=== PATIENT | male | born 1940 | race African-American/Black ===

== ENCOUNTER 2020-08-22 15:01 | Inpatient (IN) ==
[2020-08-22] MEDS ORDERED: SODIUM CHLORIDE 0.9% 1,000 ML IV STA (15:40)
[2020-08-22 17:23] LABS: Hematocrit 19.8 VOL% (42.0-52.0); Immature Granulocytes % 0.9 %; Immature Granulocytes Absolute 0.03 #; Lymphocytes # 1.4 10*3/uL (1.4-4.0); Lymphocytes % 41.2 % (21.2-54.2); Mean Corpuscular HGB Conc 30.8 GM/DL (32-36); Mean Corpuscular Volume 60.2 FL (87-102); Monocytes % 8.4 % (1.7-12.7); Neutrophils % 49.5 % (38.7-73.9); Platelet Count 55 T/CUMM (130-400); Red Blood Count 3.29 MC/CUMM (3.8-5.5); Red Cell Distribution Width 17.7 % (9.3-17.3); White Blood Count 3.4 T/CUMM (4-12)
[2020-08-22 17:29] LABS: Hemoglobin 6.1 GM/DL (14.0-18.0)
[2020-08-22 17:42] LABS: Albumin 1.9 G/DL (3.4-5.0); Bilirubin,Total 0.9 MG/DL (0.2-1.0); Calcium 7.7 MG/DL (8.5-10.1); Osmolality,Calculated 293.7 MOS/KG (273-304); Total Protein 5.8 G/DL (6.4-8.3)
[2020-08-22 18:07] LABS: Lymphocytes 22 % (20-55); Segmented Neutrophils 73 % (50-85); Total Cells Counted 100
[2020-08-22 18:10] LABS: % Iron Saturation 30.5 % (18-50); Ferritin 806.3 ng/ml (26-388)
[2020-08-22] MEDS ORDERED: ONDANSETRON 4 MG/2 ML VIAL IV PRN (18:10)
[2020-08-22] MEDS ORDERED: DEXTROSE 50% 25 GM/50 ML VIAL IV PRN ×2 (18:10→18:21)
[2020-08-22] MEDS ORDERED: GLUCAGON 1 MG VIAL IM PRN ×2 (18:10→18:21)
[2020-08-22 18:12] LABS: Anisocytosis 3+; Macrocytosis 1+; Microcytosis 3+; Poikilocytosis 2+; Polychromasia 1+; Schistocytes Few; Target Cells Few
[2020-08-22] MEDS ORDERED: SODIUM CHLORIDE 0.9% 1,000 ML IV PRN (18:12)
[2020-08-22 18:13] LABS: Burr Cells Slight; Platelet Estimate Decreased
[2020-08-22 18:14] LABS: Hypochromasia Slight
[2020-08-22 18:27] LABS: Folate 2.2 NG/ML (5.4-24.0)
[2020-08-22] MEDS: SODIUM CHLORIDE 0.9% 1,000 ML IV SCH (20:00)
[2020-08-22] MEDS: INSULIN LISPRO 100 UNIT/ML SUBCUT SCH (21:39)
[2020-08-22] MEDS: carvediloL 6.25 MG TABLET PO SCH (21:57)
[2020-08-22] MEDS: cilostazoL 100 MG TABLET PO SCH (21:58)
[2020-08-22] MEDS: ROSUVASTATIN 10 MG TABLET PO SCH (21:58)
[2020-08-22] MEDS: PANTOPRAZOLE 40 MG VIAL IV SCH (21:58)
[2020-08-23 06:09] LABS: Basophils % 0.3 % (0.0-0.8); Hematocrit 25.5 VOL% (42.0-52.0); Hemoglobin 8.1 GM/DL (14.0-18.0); Immature Granulocytes % 1.3 %; Immature Granulocytes Absolute 0.05 #; Lymphocytes # 1.8 10*3/uL (1.4-4.0); Lymphocytes % 46.9 % (21.2-54.2); Mean Corpuscular HGB Conc 31.8 GM/DL (32-36); Mean Corpuscular Volume 65.1 FL (87-102); Monocytes % 6.7 % (1.7-12.7); NRBC # 0.03 10*3/uL; Neutrophils % 44.8 % (38.7-73.9); Platelet Count 53 T/CUMM (130-400); Red Blood Count 3.92 MC/CUMM (3.8-5.5); Red Cell Distribution Width 24.2 % (9.3-17.3); White Blood Count 3.9 T/CUMM (4-12)
[2020-08-23 06:38] LABS: Band Neutrophils 4 % (0-10); Lymphocytes 31 % (20-55); Platelet Estimate Decreased; Segmented Neutrophils 60 % (50-85); Total Cells Counted 100
[2020-08-23 06:40] LABS: Atypical Lymphocytes Few; Hypochromasia 1+; Microcytosis 1+
[2020-08-23 06:44] LABS: Blood Urea Nitrogen 60 MG/DL (7-18); Calcium 7.6 MG/DL (8.5-10.1); Estimated Glom Filtration Rate 41 ML/MIN; Glucose 141 MG/DL (74-106); HDL Cholesterol 19 MG/DL (40-60); Osmolality,Calculated 293.7 MOS/KG (273-304); Risk Ratio 2.63; Triglycerides 72 MG/DL (2-150); VLDL CHOLESTEROL 14.4 MG/DL
[2020-08-23] MEDS: INSULIN LISPRO 100 UNIT/ML SUBCUT SCH ×4 (08:10→20:36)
[2020-08-23] MEDS ORDERED: PANTOPRAZOLE 40 MG TABLET PO SCH (09:00)
[2020-08-23] MEDS ORDERED: allopurinoL 100 MG TABLET PO SCH (09:00)
[2020-08-23] MEDS: PANTOPRAZOLE 40 MG VIAL IV SCH ×2 (10:10→20:32)
[2020-08-23] MEDS: carvediloL 6.25 MG TABLET PO SCH ×2 (10:13→17:50)
[2020-08-23] MEDS: TAMSULOSIN 0.4 MG CAPSULE PO SCH (10:14)
[2020-08-23] MEDS: cilostazoL 100 MG TABLET PO SCH ×2 (10:16→20:32)
[2020-08-23] MEDS: calcitrioL 0.25 MCG CAPSULE PO SCH (13:29)
[2020-08-23] MEDS: ACETAMINOPHEN 325 MG/10.15 ML UDCUP PO PRN (13:30)
[2020-08-23] MEDS: SODIUM CHLORIDE 0.9% 1,000 ML IV SCH (13:32)
[2020-08-23 18:53] LABS: Bacteria,Urine Occasional /HPF (Few); Bilirubin,Urine Negative (Negative); Blood, Urine Small mg/dL (Negative); Glucose,Urine (UA) Negative (Negative); Ketones,Urine Negative (Negative); Mucus,Urine Occasional /LPF (Occasional); Nitrite,Urine Negative (Negative); Protein,Urine Negative; RBC,Urine 11 /HPF (0-4); Urine Appearance CLEAR (Clear); Urine Color Yellow (Yellow); Urine Specific Gravity 1.015 (1.001-1.035); Urine Urobilinogen < 2.0 EU/DL (0.2-1.0); WBC,Urine 4 /HPF (0-6)
[2020-08-23] MEDS: ROSUVASTATIN 10 MG TABLET PO SCH (20:32)
[2020-08-24] MEDS: SODIUM CHLORIDE 0.9% 1,000 ML IV SCH ×3 (02:44→20:21)
[2020-08-24] MEDS: INSULIN LISPRO 100 UNIT/ML SUBCUT SCH ×4 (08:30→20:25)
[2020-08-24] MEDS: calcitrioL 0.25 MCG CAPSULE PO SCH (08:31)
[2020-08-24] MEDS: carvediloL 6.25 MG TABLET PO SCH ×2 (08:31→18:20)
[2020-08-24] MEDS: PANTOPRAZOLE 40 MG VIAL IV SCH ×2 (08:31→20:18)
[2020-08-24] MEDS: cilostazoL 100 MG TABLET PO SCH ×2 (08:31→20:16)
[2020-08-24] MEDS: TAMSULOSIN 0.4 MG CAPSULE PO SCH (08:31)
[2020-08-24] MEDS: methylPREDNISolone SOD SUC 125 MG/2 ML VIAL IV SCH ×2 (08:35→20:16)
[2020-08-24] MEDS: MYLANTA/LIDO VISC/NYST 180 ML BOTTLE SWISH/SWAL PRN (20:27)
[2020-08-25 06:04] LABS: Basophils % 0.3 % (0.0-0.8); Hematocrit 23.5 VOL% (42.0-52.0); Hemoglobin 7.4 GM/DL (14.0-18.0); Immature Granulocytes % 1.2 %; Immature Granulocytes Absolute 0.04 #; Lymphocytes # 1.4 10*3/uL (1.4-4.0); Lymphocytes % 40.4 % (21.2-54.2); Mean Corpuscular HGB Conc 31.5 GM/DL (32-36); Mean Corpuscular Volume 65.3 FL (87-102); Monocytes % 4.4 % (1.7-12.7); Neutrophils % 53.7 % (38.7-73.9); Platelet Count 55 T/CUMM (130-400); White Blood Count 3.4 T/CUMM (4-12)
[2020-08-25 06:33] LABS: Band Neutrophils 26 % (0-10); Lymphocytes 38 % (20-55); Nucleated Red Blood Cells 4 (0-5); Platelet Estimate Decreased; Segmented Neutrophils 33 % (50-85); Smudge Cells 1+; Total Cells Counted 100
[2020-08-25 06:34] LABS: Anisocytosis 2+; Burr Cells 1+; Poikilocytosis 1+; Target Cells Few
[2020-08-25 06:36] LABS: Albumin 1.8 G/DL (3.4-5.0); Bilirubin,Total 1.2 MG/DL (0.2-1.0); Calcium 7.7 MG/DL (8.5-10.1); Osmolality,Calculated 298.5 MOS/KG (273-304); Total Protein 6.1 G/DL (6.4-8.3)
[2020-08-25] MEDS ORDERED: SODIUM CHLORIDE 0.9% 1,000 ML IV PRN (08:40)
[2020-08-25] MEDS: PANTOPRAZOLE 40 MG VIAL IV SCH ×2 (08:58→22:07)
[2020-08-25] MEDS: methylPREDNISolone SOD SUC 125 MG/2 ML VIAL IV SCH ×2 (08:59→22:07)
[2020-08-25] MEDS: INSULIN LISPRO 100 UNIT/ML SUBCUT SCH ×4 (08:59→22:07)
[2020-08-25] MEDS: calcitrioL 0.25 MCG CAPSULE PO SCH (09:00)
[2020-08-25] MEDS: TAMSULOSIN 0.4 MG CAPSULE PO SCH (09:00)
[2020-08-25] MEDS: carvediloL 6.25 MG TABLET PO SCH ×2 (09:00→17:39)
[2020-08-25] MEDS: cilostazoL 100 MG TABLET PO SCH ×2 (09:00→22:07)
[2020-08-25] MEDS: FOLIC ACID 1 MG TABLET PO SCH (12:07)
[2020-08-25] MEDS: SODIUM CHLORIDE 0.9% 1,000 ML IV SCH ×2 (13:40→17:39)
[2020-08-25] MEDS ORDERED: TUBERCULIN SKIN TEST 0.1 ML SYRINGE INTRADERM ONE (18:08)
[2020-08-25] MEDS: KETOCONAZOLE 2% CREAM 30 GM TUBE TOP SCH (22:08)
[2020-08-25] MEDS: MYLANTA/LIDO VISC/NYST 180 ML BOTTLE SWISH/SWAL PRN (22:08)
[2020-08-25] MEDS: ZINC OXIDE 16% PASTE 57 GM TUBE TOP SCH (22:08)
[2020-08-26 04:17] LABS: Hematocrit 30.9 VOL% (42.0-52.0); Immature Granulocytes % 1.2 %; Immature Granulocytes Absolute 0.03 #; Lymphocytes # 0.9 10*3/uL (1.4-4.0); Lymphocytes % 36.1 % (21.2-54.2); Mean Corpuscular HGB Conc 32.4 GM/DL (32-36); Mean Corpuscular Volume 66.2 FL (87-102); Monocytes % 6.7 % (1.7-12.7); NRBC # 0.02 10*3/uL; Platelet Count 49 T/CUMM (130-400); Red Blood Count 4.67 MC/CUMM (3.8-5.5); Red Cell Distribution Width 25.3 % (9.3-17.3); White Blood Count 2.5 T/CUMM (4-12)
[2020-08-26 04:31] LABS: Albumin 1.8 G/DL (3.4-5.0); Calcium 7.4 MG/DL (8.5-10.1); Osmolality,Calculated 303.5 MOS/KG (273-304); Total Protein 6.6 G/DL (6.4-8.3)
[2020-08-26 04:50] LABS: Band Neutrophils 1 % (0-10); Lymphocytes 30 % (20-55); Nucleated Red Blood Cells 1 (0-5); Platelet Estimate Decreased; Segmented Neutrophils 61 % (50-85); Total Cells Counted 100
[2020-08-26 04:51] LABS: Burr Cells Slight; Hypochromasia 1+; Microcytosis Slight; Ovalocytes Slight
[2020-08-26 04:52] LABS: Atypical Lymphocytes Few
[2020-08-26] MEDS: SODIUM CHLORIDE 0.9% 1,000 ML IV SCH ×2 (05:57→19:15)
[2020-08-26] MEDS: INSULIN LISPRO 100 UNIT/ML SUBCUT SCH ×4 (08:58→20:52)
[2020-08-26] MEDS: methylPREDNISolone SOD SUC 125 MG/2 ML VIAL IV SCH ×2 (08:59→20:53)
[2020-08-26] MEDS: FOLIC ACID 1 MG TABLET PO SCH (08:59)
[2020-08-26] MEDS: calcitrioL 0.25 MCG CAPSULE PO SCH (08:59)
[2020-08-26] MEDS: cilostazoL 100 MG TABLET PO SCH ×2 (08:59→20:52)
[2020-08-26] MEDS: TAMSULOSIN 0.4 MG CAPSULE PO SCH (08:59)
[2020-08-26] MEDS: MYLANTA/LIDO VISC/NYST 180 ML BOTTLE SWISH/SWAL PRN ×2 (08:59→17:44)
[2020-08-26] MEDS: carvediloL 6.25 MG TABLET PO SCH ×2 (08:59→17:44)
[2020-08-26] MEDS: PANTOPRAZOLE 40 MG VIAL IV SCH ×2 (08:59→20:53)
[2020-08-26] MEDS: KETOCONAZOLE 2% CREAM 30 GM TUBE TOP SCH ×2 (09:00→20:53)
[2020-08-26] MEDS: ZINC OXIDE 16% PASTE 57 GM TUBE TOP SCH ×2 (09:00→20:53)
[2020-08-27 04:08] LABS: Hematocrit 30.1 VOL% (42.0-52.0); Hemoglobin 9.8 GM/DL (14.0-18.0); Immature Granulocytes Absolute 0.03 #; Lymphocytes # 0.5 10*3/uL (1.4-4.0); Mean Corpuscular HGB Conc 32.6 GM/DL (32-36); Monocytes % 5.4 % (1.7-12.7); NRBC # 0.03 10*3/uL; Neutrophils % 60.6 % (38.7-73.9); Platelet Count 42 T/CUMM (130-400); Red Blood Count 4.56 MC/CUMM (3.8-5.5); Red Cell Distribution Width 25.2 % (9.3-17.3); White Blood Count 1.5 T/CUMM (4-12)
[2020-08-27 04:32] LABS: Albumin 1.7 G/DL (3.4-5.0); Bilirubin,Total 1.3 MG/DL (0.2-1.0); Calcium 7.7 MG/DL (8.5-10.1); Osmolality,Calculated 299.4 MOS/KG (273-304); Total Protein 6.5 G/DL (6.4-8.3)
[2020-08-27 06:22] LABS: Band Neutrophils 20 % (0-10); Lymphocytes 24 % (20-55); Segmented Neutrophils 54 % (50-85); Total Cells Counted 100
[2020-08-27 06:23] LABS: Anisocytosis 2+; Burr Cells 2+; Platelet Estimate Decreased; Smudge Cells Few; Target Cells Few
[2020-08-27] MEDS: methylPREDNISolone SOD SUC 125 MG/2 ML VIAL IV SCH ×2 (09:00→20:23)
[2020-08-27] MEDS: PANTOPRAZOLE 40 MG VIAL IV SCH ×2 (09:00→20:24)
[2020-08-27] MEDS: INSULIN LISPRO 100 UNIT/ML SUBCUT SCH ×4 (09:00→20:24)
[2020-08-27] MEDS: calcitrioL 0.25 MCG CAPSULE PO SCH (09:01)
[2020-08-27] MEDS: KETOCONAZOLE 2% CREAM 30 GM TUBE TOP SCH ×2 (09:01→20:24)
[2020-08-27] MEDS: TAMSULOSIN 0.4 MG CAPSULE PO SCH (09:01)
[2020-08-27] MEDS: carvediloL 6.25 MG TABLET PO SCH ×2 (09:01→16:18)
[2020-08-27] MEDS: cilostazoL 100 MG TABLET PO SCH ×2 (09:01→20:25)
[2020-08-27] MEDS: ZINC OXIDE 16% PASTE 57 GM TUBE TOP SCH ×2 (09:01→20:24)
[2020-08-27] MEDS: FOLIC ACID 1 MG TABLET PO SCH (09:01)
[2020-08-27] MEDS: SODIUM CHLORIDE 0.9% 1,000 ML IV SCH ×2 (09:06→22:10)
[2020-08-27] MEDS: MYLANTA/LIDO VISC/NYST 180 ML BOTTLE SWISH/SWAL PRN ×2 (16:31→20:25)
[2020-08-27] MEDS: ACETAMINOPHEN 325 MG/10.15 ML UDCUP PO PRN (20:26)
[2020-08-28 06:34] LABS: Basophils % 0.5 % (0.0-0.8); Hematocrit 32.5 VOL% (42.0-52.0); Hemoglobin 10.5 GM/DL (14.0-18.0); Immature Granulocytes % 6.6 %; Immature Granulocytes Absolute 0.14 #; Lymphocytes # 0.4 10*3/uL (1.4-4.0); Lymphocytes % 20.7 % (21.2-54.2); Mean Corpuscular HGB Conc 32.3 GM/DL (32-36); Mean Corpuscular Volume 66.5 FL (87-102); Monocytes % 4.2 % (1.7-12.7); NRBC # 0.06 10*3/uL; Platelet Count 41 T/CUMM (130-400); Red Blood Count 4.89 MC/CUMM (3.8-5.5); Red Cell Distribution Width 25.9 % (9.3-17.3); White Blood Count 2.1 T/CUMM (4-12)
[2020-08-28 06:58] LABS: Albumin 1.7 G/DL (3.4-5.0); Bilirubin,Total 1.7 MG/DL (0.2-1.0); Calcium 7.7 MG/DL (8.5-10.1); Osmolality,Calculated 298.5 MOS/KG (273-304)
[2020-08-28 07:54] LABS: Anisocytosis 2+; Band Neutrophils 21 % (0-10); Burr Cells Few; Hypochromasia Slight; Lymphocytes 19 % (20-55); Metamyelocytes 1 %; Nucleated Red Blood Cells 3 (0-5); Platelet Estimate Decreased; Segmented Neutrophils 56 % (50-85); Smudge Cells Few; Target Cells Few; Total Cells Counted 100
[2020-08-28] MEDS: MYLANTA/LIDO VISC/NYST 180 ML BOTTLE SWISH/SWAL PRN ×3 (09:11→20:54)
[2020-08-28] MEDS: calcitrioL 0.25 MCG CAPSULE PO SCH (09:12)
[2020-08-28] MEDS: cilostazoL 100 MG TABLET PO SCH ×2 (09:12→21:07)
[2020-08-28] MEDS: FOLIC ACID 1 MG TABLET PO SCH (09:12)
[2020-08-28] MEDS: TAMSULOSIN 0.4 MG CAPSULE PO SCH (09:13)
[2020-08-28] MEDS: carvediloL 6.25 MG TABLET PO SCH ×2 (09:13→17:38)
[2020-08-28] MEDS: INSULIN LISPRO 100 UNIT/ML SUBCUT SCH ×4 (09:14→20:50)
[2020-08-28] MEDS: methylPREDNISolone SOD SUC 125 MG/2 ML VIAL IV SCH ×2 (09:16→20:50)
[2020-08-28] MEDS: PANTOPRAZOLE 40 MG VIAL IV SCH ×2 (09:19→20:50)
[2020-08-28] MEDS: ZINC OXIDE 16% PASTE 57 GM TUBE TOP SCH ×2 (09:24→20:50)
[2020-08-28] MEDS: KETOCONAZOLE 2% CREAM 30 GM TUBE TOP SCH ×2 (09:24→20:50)
[2020-08-28] MEDS: ACETAMINOPHEN 325 MG/10.15 ML UDCUP PO PRN (15:50)
[2020-08-28] MEDS: SODIUM CHLORIDE 0.9% 1,000 ML IV SCH (15:55)
[2020-08-29] MEDS: SODIUM CHLORIDE 0.9% 1,000 ML IV SCH ×4 (00:28→20:52)
[2020-08-29 04:29] LABS: Hematocrit 29.1 VOL% (42.0-52.0); Hemoglobin 9.2 GM/DL (14.0-18.0); Immature Granulocytes % 3.3 %; Immature Granulocytes Absolute 0.06 #; Lymphocytes # 0.3 10*3/uL (1.4-4.0); Lymphocytes % 15.8 % (21.2-54.2); Mean Corpuscular HGB Conc 31.6 GM/DL (32-36); Mean Corpuscular Volume 67.4 FL (87-102); Monocytes % 4.3 % (1.7-12.7); NRBC # 0.02 10*3/uL; Neutrophils % 76.6 % (38.7-73.9); Red Blood Count 4.32 MC/CUMM (3.8-5.5); Red Cell Distribution Width 25.9 % (9.3-17.3); White Blood Count 1.8 T/CUMM (4-12)
[2020-08-29 04:31] LABS: Platelet Count 39 T/CUMM (130-400)
[2020-08-29 04:57] LABS: Albumin 1.6 G/DL (3.4-5.0); Bilirubin,Total 0.9 MG/DL (0.2-1.0); Calcium 7.5 MG/DL (8.5-10.1); Osmolality,Calculated 302.3 MOS/KG (273-304); Total Protein 6.2 G/DL (6.4-8.3)
[2020-08-29 04:59] LABS: Band Neutrophils 2 % (0-10); Burr Cells Slight; Hypochromasia 1+; Lymphocytes 15 % (20-55); Nucleated Red Blood Cells 2 (0-5); Platelet Estimate Decreased; Segmented Neutrophils 81 % (50-85); Target Cells Few; Total Cells Counted 100
[2020-08-29 08:20] LABS: INR 1.2; PT Patient Result 12.4 SECS (9.8-11.9)
[2020-08-29] MEDS: PANTOPRAZOLE 40 MG VIAL IV SCH ×2 (08:40→20:49)
[2020-08-29] MEDS: calcitrioL 0.25 MCG CAPSULE PO SCH (08:40)
[2020-08-29] MEDS: INSULIN LISPRO 100 UNIT/ML SUBCUT SCH ×4 (08:40→20:46)
[2020-08-29] MEDS: methylPREDNISolone SOD SUC 125 MG/2 ML VIAL IV SCH ×2 (08:40→20:46)
[2020-08-29] MEDS: carvediloL 6.25 MG TABLET PO SCH ×2 (08:41→16:52)
[2020-08-29] MEDS: KETOCONAZOLE 2% CREAM 30 GM TUBE TOP SCH ×2 (08:41→20:52)
[2020-08-29] MEDS: ZINC OXIDE 16% PASTE 57 GM TUBE TOP SCH ×2 (08:41→20:52)
[2020-08-29] MEDS: FOLIC ACID 1 MG TABLET PO SCH (08:41)
[2020-08-29] MEDS: TAMSULOSIN 0.4 MG CAPSULE PO SCH (08:41)
[2020-08-29] MEDS: cilostazoL 100 MG TABLET PO SCH ×2 (08:41→20:46)
[2020-08-29] MEDS ORDERED: HEPARIN 5,000 UNIT/1 ML VIAL ONE (10:38)
[2020-08-30 04:54] LABS: Hematocrit 30.4 VOL% (42.0-52.0); Hemoglobin 9.5 GM/DL (14.0-18.0); Immature Granulocytes % 6.9 %; Immature Granulocytes Absolute 0.13 #; Lymphocytes # 0.3 10*3/uL (1.4-4.0); Lymphocytes % 14.8 % (21.2-54.2); Mean Corpuscular HGB Conc 31.3 GM/DL (32-36); Mean Corpuscular Volume 67.1 FL (87-102); Monocytes % 3.7 % (1.7-12.7); NRBC # 0.02 10*3/uL; Neutrophils % 74.6 % (38.7-73.9); Red Blood Count 4.53 MC/CUMM (3.8-5.5); Red Cell Distribution Width 25.9 % (9.3-17.3); White Blood Count 1.9 T/CUMM (4-12)
[2020-08-30 04:59] LABS: Platelet Count 34 T/CUMM (130-400)
[2020-08-30 05:17] LABS: Band Neutrophils 1 % (0-10); Lymphocytes 11 % (20-55); Segmented Neutrophils 86 % (50-85); Total Cells Counted 100
[2020-08-30 05:18] LABS: Hypochromasia 1+; Microcytosis Slight; Ovalocytes Slight; Platelet Estimate Decreased; Target Cells Few
[2020-08-30 05:19] LABS: Burr Cells Slight
[2020-08-30 05:27] LABS: Albumin 1.7 G/DL (3.4-5.0); Bilirubin,Total 1.2 MG/DL (0.2-1.0); Calcium 7.5 MG/DL (8.5-10.1); Osmolality,Calculated 299.5 MOS/KG (273-304); Total Protein 6.3 G/DL (6.4-8.3)
[2020-08-30] MEDS: KETOCONAZOLE 2% CREAM 30 GM TUBE TOP SCH ×2 (09:09→21:58)
[2020-08-30] MEDS: PANTOPRAZOLE 40 MG VIAL IV SCH ×2 (09:09→21:57)
[2020-08-30] MEDS: SODIUM CHLORIDE 0.9% 1,000 ML IV SCH ×3 (09:09→22:00)
[2020-08-30] MEDS: carvediloL 6.25 MG TABLET PO SCH ×2 (09:10→17:51)
[2020-08-30] MEDS: TAMSULOSIN 0.4 MG CAPSULE PO SCH (09:10)
[2020-08-30] MEDS: calcitrioL 0.25 MCG CAPSULE PO SCH (09:10)
[2020-08-30] MEDS: FOLIC ACID 1 MG TABLET PO SCH (09:10)
[2020-08-30] MEDS: INSULIN LISPRO 100 UNIT/ML SUBCUT SCH ×4 (09:10→21:54)
[2020-08-30] MEDS: cilostazoL 100 MG TABLET PO SCH ×2 (09:10→21:58)
[2020-08-30] MEDS: methylPREDNISolone SOD SUC 125 MG/2 ML VIAL IV SCH ×2 (09:10→21:55)
[2020-08-30] MEDS: ZINC OXIDE 16% PASTE 57 GM TUBE TOP SCH ×2 (09:11→21:58)
[2020-08-30] MEDS: amLODIPine 5 MG TABLET PO SCH (17:51)
[2020-08-31 06:51] LABS: Total Protein (Chem) 6.8 G/DL (6.4-8.3)
[2020-08-31] MEDS: methylPREDNISolone SOD SUC 125 MG/2 ML VIAL IV SCH ×2 (09:09→20:40)
[2020-08-31] MEDS: INSULIN LISPRO 100 UNIT/ML SUBCUT SCH ×4 (09:11→20:38)
[2020-08-31] MEDS: carvediloL 6.25 MG TABLET PO SCH ×2 (09:12→17:17)
[2020-08-31] MEDS: TAMSULOSIN 0.4 MG CAPSULE PO SCH (09:13)
[2020-08-31] MEDS: amLODIPine 5 MG TABLET PO SCH (09:13)
[2020-08-31] MEDS: FOLIC ACID 1 MG TABLET PO SCH (09:13)
[2020-08-31] MEDS: cilostazoL 100 MG TABLET PO SCH ×2 (09:13→20:40)
[2020-08-31] MEDS: KETOCONAZOLE 2% CREAM 30 GM TUBE TOP SCH ×2 (09:14→20:41)
[2020-08-31] MEDS: ZINC OXIDE 16% PASTE 57 GM TUBE TOP SCH ×2 (09:14→20:40)
[2020-08-31] MEDS: calcitrioL 0.25 MCG CAPSULE PO SCH (09:16)
[2020-08-31] MEDS: PANTOPRAZOLE 40 MG VIAL IV SCH ×2 (09:16→20:39)
[2020-08-31 09:51] LABS: Albumin (SPE) 2.6 G/DL (3.2-5.3); Albumin (SPE) Rel % 37.6 %; Alpha 1 (SPE) 0.2 G/DL (0.1-0.4); Alpha 1 (SPE) Rel % 2.8 %; Alpha 2 (SPE) 0.7 G/DL (0.4-1.0); Alpha 2 (SPE) Rel % 10.5 %; Beta (SPE) 0.5 G/DL (0.5-1.1); Beta (SPE) Rel % 7.2 %; Gamma (SPE) 2.8 G/DL (0.7-1.7); Gamma (SPE) Rel % 41.9 %
[2020-08-31] MEDS: SODIUM CHLORIDE 0.9% 1,000 ML IV SCH (17:19)
[2020-09-01 04:02] LABS: Basophils % 0.3 % (0.0-0.8); Hematocrit 29.7 VOL% (42.0-52.0); Hemoglobin 9.4 GM/DL (14.0-18.0); Immature Granulocytes % 5.8 %; Immature Granulocytes Absolute 0.17 #; Lymphocytes # 0.7 10*3/uL (1.4-4.0); Lymphocytes % 24.1 % (21.2-54.2); Mean Corpuscular HGB Conc 31.6 GM/DL (32-36); Monocytes % 9.9 % (1.7-12.7); NRBC # 0.03 10*3/uL; Neutrophils % 59.9 % (38.7-73.9); Platelet Count 43 T/CUMM (130-400); Red Blood Count 4.37 MC/CUMM (3.8-5.5); Red Cell Distribution Width 25.5 % (9.3-17.3); White Blood Count 2.9 T/CUMM (4-12)
[2020-09-01 04:25] LABS: Calcium 7.5 MG/DL (8.5-10.1); Osmolality,Calculated 294.3 MOS/KG (273-304)
[2020-09-01 04:28] LABS: Hypochromasia 1+; Lymphocytes 26 % (20-55); Ovalocytes Slight; Platelet Estimate Decreased; Segmented Neutrophils 68 % (50-85); Total Cells Counted 100
[2020-09-01 04:29] LABS: Microcytosis Slight; Target Cells Few
[2020-09-01] MEDS: ZINC OXIDE 16% PASTE 57 GM TUBE TOP SCH ×2 (08:50→21:01)
[2020-09-01] MEDS: KETOCONAZOLE 2% CREAM 30 GM TUBE TOP SCH ×2 (08:51→21:02)
[2020-09-01] MEDS: INSULIN LISPRO 100 UNIT/ML SUBCUT SCH ×4 (08:51→21:00)
[2020-09-01] MEDS: SODIUM CHLORIDE 0.9% 1,000 ML IV SCH ×2 (08:52→21:00)
[2020-09-01] MEDS: methylPREDNISolone SOD SUC 125 MG/2 ML VIAL IV SCH ×2 (08:53→20:59)
[2020-09-01] MEDS: PANTOPRAZOLE 40 MG VIAL IV SCH ×2 (08:55→20:59)
[2020-09-01] MEDS: amLODIPine 5 MG TABLET PO SCH (08:58)
[2020-09-01] MEDS: TAMSULOSIN 0.4 MG CAPSULE PO SCH (08:58)
[2020-09-01] MEDS: calcitrioL 0.25 MCG CAPSULE PO SCH (08:58)
[2020-09-01] MEDS: FOLIC ACID 1 MG TABLET PO SCH (08:58)
[2020-09-01] MEDS: CLOTRIMAZOLE 10 MG TROCHE PO SCH ×4 (09:03→20:58)
[2020-09-01] MEDS: carvediloL 6.25 MG TABLET PO SCH ×2 (09:03→16:16)
[2020-09-01] MEDS ORDERED: INFLUENZA VIRUS VACCINE 0.5 ML SYRINGE IM ONE (11:11)
[2020-09-01 18:53] LABS: HIV Antigen/Antibody Result Nonreactive (Nonreactive); Hepatitis B Core IgM Quant 0.09 Index; Hepatitis B Surface Ab Result Negative; Hepatitis B Surface Ag Quant < 0.10 Index; Hepatitis B Surface Ag Result Negative (Negative); Hepatitis C Virus Ab Quant 0.14 Index; Hepatitis C Virus Ab Result Negative (Negative)
[2020-09-01] MEDS: NYSTATIN POWDER 15 GM BOTTLE TOP SCH (21:04)
[2020-09-02 06:16] LABS: Basophils % 0.3 % (0.0-0.8); Hematocrit 32.1 VOL% (42.0-52.0); Hemoglobin 10.2 GM/DL (14.0-18.0); Immature Granulocytes % 5.6 %; Immature Granulocytes Absolute 0.19 #; Lymphocytes # 0.8 10*3/uL (1.4-4.0); Lymphocytes % 22.3 % (21.2-54.2); Mean Corpuscular HGB Conc 31.8 GM/DL (32-36); Mean Corpuscular Volume 67.4 FL (87-102); Monocytes % 8.2 % (1.7-12.7); Neutrophils % 63.6 % (38.7-73.9); Platelet Count 47 T/CUMM (130-400); Red Blood Count 4.76 MC/CUMM (3.8-5.5); Red Cell Distribution Width 25.9 % (9.3-17.3); White Blood Count 3.4 T/CUMM (4-12)
[2020-09-02 06:37] LABS: Albumin 1.6 G/DL (3.4-5.0); Bilirubin,Total 0.9 MG/DL (0.2-1.0); Calcium 7.9 MG/DL (8.5-10.1); Osmolality,Calculated 288.5 MOS/KG (273-304); Total Protein 6.1 G/DL (6.4-8.3)
[2020-09-02 06:48] LABS: Lymphocytes 23 % (20-55); Platelet Estimate Decreased; Segmented Neutrophils 64 % (50-85); Total Cells Counted 100
[2020-09-02 06:49] LABS: Microcytosis Slight
[2020-09-02] MEDS: PANTOPRAZOLE 40 MG VIAL IV SCH ×2 (08:53→21:27)
[2020-09-02] MEDS: INSULIN LISPRO 100 UNIT/ML SUBCUT SCH ×4 (08:53→21:27)
[2020-09-02] MEDS: calcitrioL 0.25 MCG CAPSULE PO SCH (08:54)
[2020-09-02] MEDS: carvediloL 6.25 MG TABLET PO SCH ×2 (08:54→17:33)
[2020-09-02] MEDS: methylPREDNISolone SOD SUC 125 MG/2 ML VIAL IV SCH (08:54)
[2020-09-02] MEDS: TAMSULOSIN 0.4 MG CAPSULE PO SCH (08:55)
[2020-09-02] MEDS: CLOTRIMAZOLE 10 MG TROCHE PO SCH ×4 (08:55→21:27)
[2020-09-02] MEDS: FOLIC ACID 1 MG TABLET PO SCH (08:55)
[2020-09-02] MEDS: amLODIPine 5 MG TABLET PO SCH (08:55)
[2020-09-02] MEDS: ZINC OXIDE 16% PASTE 57 GM TUBE TOP SCH ×2 (08:56→21:28)
[2020-09-02] MEDS: NYSTATIN POWDER 15 GM BOTTLE TOP SCH ×2 (08:56→21:27)
[2020-09-02] MEDS: KETOCONAZOLE 2% CREAM 30 GM TUBE TOP SCH ×2 (08:57→21:28)
[2020-09-02] MEDS: SODIUM CHLORIDE 0.9% 1,000 ML IV SCH (09:04)
[2020-09-02] MEDS ORDERED: SODIUM CHLORIDE 0.9% 1,000 ML IV PRN (12:28)
[2020-09-02] MEDS: methylPREDNISolone SOD SUC 40 MG/1 ML VIAL IV SCH (13:23)
[2020-09-03] MEDS: SODIUM CHLORIDE 0.9% 1,000 ML IV SCH ×2 (00:30→12:39)
[2020-09-03] MEDS: methylPREDNISolone SOD SUC 40 MG/1 ML VIAL IV SCH ×2 (02:21→12:34)
[2020-09-03] MEDS: ACETAMINOPHEN 325 MG/10.15 ML UDCUP PO PRN ×2 (04:47→20:57)
[2020-09-03 06:01] LABS: Basophils % 0.2 % (0.0-0.8); Hematocrit 29.5 VOL% (42.0-52.0); Hemoglobin 9.1 GM/DL (14.0-18.0); Immature Granulocytes % 5.4 %; Immature Granulocytes Absolute 0.22 #; Lymphocytes # 0.8 10*3/uL (1.4-4.0); Lymphocytes % 20.3 % (21.2-54.2); Mean Corpuscular HGB Conc 30.8 GM/DL (32-36); Monocytes % 6.7 % (1.7-12.7); Neutrophils % 67.4 % (38.7-73.9); Red Blood Count 4.34 MC/CUMM (3.8-5.5); Red Cell Distribution Width 25.8 % (9.3-17.3)
[2020-09-03 06:12] LABS: Platelet Count 59 T/CUMM (130-400)
[2020-09-03 06:16] LABS: Calcium 7.7 MG/DL (8.5-10.1); Osmolality,Calculated 282.8 MOS/KG (273-304)
[2020-09-03 06:34] LABS: Alanine Aminotransferase < 6 U/L (16-61); Albumin 0.6 G/DL (3.4-5.0); Alkaline Phosphatase 86 U/L (45-117); Aspartate Amino Transferase < 3 U/L (0-37); Blood Urea Nitrogen < 1 MG/DL (7-18); Calcium 7.7 MG/DL (8.5-10.1); Estimated Glom Filtration Rate 89 ML/MIN; Glucose 149 MG/DL (74-106); Osmolality,Calculated 266.6 MOS/KG (273-304); Total Protein < 1.0 G/DL (6.4-8.3)
[2020-09-03 06:35] LABS: Band Neutrophils 4 % (0-10); Hypochromasia 2+; Lymphocytes 17 % (20-55); Metamyelocytes 1 %; Microcytosis 1+; Segmented Neutrophils 74 % (50-85); Target Cells Slight; Total Cells Counted 100
[2020-09-03 06:36] LABS: Platelet Estimate Decreased; Polychromasia Slight
[2020-09-03] MEDS: INSULIN LISPRO 100 UNIT/ML SUBCUT SCH ×4 (09:54→20:57)
[2020-09-03] MEDS: calcitrioL 0.25 MCG CAPSULE PO SCH (09:55)
[2020-09-03] MEDS: FOLIC ACID 1 MG TABLET PO SCH (09:55)
[2020-09-03] MEDS: PANTOPRAZOLE 40 MG VIAL IV SCH ×2 (09:55→20:57)
[2020-09-03] MEDS: CLOTRIMAZOLE 10 MG TROCHE PO SCH ×4 (09:55→20:57)
[2020-09-03] MEDS: amLODIPine 5 MG TABLET PO SCH (09:56)
[2020-09-03] MEDS: ZINC OXIDE 16% PASTE 57 GM TUBE TOP SCH ×2 (09:56→21:05)
[2020-09-03] MEDS: TAMSULOSIN 0.4 MG CAPSULE PO SCH (09:56)
[2020-09-03] MEDS: carvediloL 6.25 MG TABLET PO SCH ×2 (09:56→16:40)
[2020-09-03] MEDS: NYSTATIN POWDER 15 GM BOTTLE TOP SCH ×2 (09:57→21:05)
[2020-09-03] MEDS: KETOCONAZOLE 2% CREAM 30 GM TUBE TOP SCH ×2 (09:57→21:05)
[2020-09-04] MEDS: methylPREDNISolone SOD SUC 40 MG/1 ML VIAL IV SCH ×2 (01:43→13:26)
[2020-09-04] MEDS: SODIUM CHLORIDE 0.9% 1,000 ML IV SCH ×2 (01:43→16:40)
[2020-09-04 07:00] LABS: Basophils % 0.2 % (0.0-0.8); Hematocrit 27.3 VOL% (42.0-52.0); Hemoglobin 8.6 GM/DL (14.0-18.0); Immature Granulocytes % 6.9 %; Immature Granulocytes Absolute 0.34 #; Lymphocytes # 0.5 10*3/uL (1.4-4.0); Lymphocytes % 10.2 % (21.2-54.2); Mean Corpuscular HGB Conc 31.5 GM/DL (32-36); Mean Corpuscular Volume 68.6 FL (87-102); Monocytes % 4.5 % (1.7-12.7); NRBC # 0.02 10*3/uL; Neutrophils % 78.2 % (38.7-73.9); Red Blood Count 3.98 MC/CUMM (3.8-5.5); Red Cell Distribution Width 25.7 % (9.3-17.3); White Blood Count 4.9 T/CUMM (4-12)
[2020-09-04 07:06] LABS: Platelet Count 71 T/CUMM (130-400)
[2020-09-04 07:23] LABS: Hypochromasia 1+; Lymphocytes 9 % (20-55); Microcytosis 1+; Platelet Estimate Decreased; Segmented Neutrophils 89 % (50-85); Target Cells Few; Total Cells Counted 100
[2020-09-04 07:35] LABS: Calcium 7.2 MG/DL (8.5-10.1); Osmolality,Calculated 290.4 MOS/KG (273-304)
[2020-09-04 07:37] LABS: Albumin 1.7 G/DL (3.4-5.0); Bilirubin,Total 0.9 MG/DL (0.2-1.0); Calcium 7.5 MG/DL (8.5-10.1); Osmolality,Calculated 287.5 MOS/KG (273-304); Total Protein 5.8 G/DL (6.4-8.3)
[2020-09-04] MEDS: INSULIN LISPRO 100 UNIT/ML SUBCUT SCH ×4 (08:56→21:01)
[2020-09-04] MEDS: PANTOPRAZOLE 40 MG VIAL IV SCH ×2 (08:57→21:01)
[2020-09-04] MEDS: CLOTRIMAZOLE 10 MG TROCHE PO SCH ×4 (08:58→21:01)
[2020-09-04] MEDS: amLODIPine 5 MG TABLET PO SCH (08:58)
[2020-09-04] MEDS: calcitrioL 0.25 MCG CAPSULE PO SCH (08:58)
[2020-09-04] MEDS: TAMSULOSIN 0.4 MG CAPSULE PO SCH (08:58)
[2020-09-04] MEDS: carvediloL 6.25 MG TABLET PO SCH ×2 (08:58→16:40)
[2020-09-04] MEDS: FOLIC ACID 1 MG TABLET PO SCH (08:58)
[2020-09-04] MEDS: KETOCONAZOLE 2% CREAM 30 GM TUBE TOP SCH ×2 (08:59→21:01)
[2020-09-04] MEDS: NYSTATIN POWDER 15 GM BOTTLE TOP SCH ×2 (08:59→21:01)
[2020-09-04] MEDS: ZINC OXIDE 16% PASTE 57 GM TUBE TOP SCH ×2 (08:59→21:01)
[2020-09-05] MEDS: methylPREDNISolone SOD SUC 40 MG/1 ML VIAL IV SCH (01:48)
[2020-09-05] MEDS: SODIUM CHLORIDE 0.9% 1,000 ML IV SCH ×2 (05:31→17:04)
[2020-09-05 05:59] LABS: Basophils % 0.2 % (0.0-0.8); Hemoglobin 8.6 GM/DL (14.0-18.0); Immature Granulocytes % 6.8 %; Immature Granulocytes Absolute 0.38 #; Lymphocytes # 0.5 10*3/uL (1.4-4.0); Mean Corpuscular HGB Conc 31.9 GM/DL (32-36); Mean Corpuscular Volume 67.8 FL (87-102); Monocytes % 5.4 % (1.7-12.7); NRBC # 0.02 10*3/uL; Neutrophils % 78.6 % (38.7-73.9); Red Blood Count 3.98 MC/CUMM (3.8-5.5); Red Cell Distribution Width 25.6 % (9.3-17.3); White Blood Count 5.6 T/CUMM (4-12)
[2020-09-05 06:04] LABS: Platelet Count 82 T/CUMM (130-400)
[2020-09-05 06:21] LABS: Hypochromasia 1+; Lymphocytes 12 % (20-55); Platelet Estimate Decreased; Segmented Neutrophils 86 % (50-85); Target Cells Few; Total Cells Counted 100
[2020-09-05 06:22] LABS: Microcytosis 1+
[2020-09-05 06:26] LABS: Albumin 1.6 G/DL (3.4-5.0); Calcium 7.1 MG/DL (8.5-10.1); Osmolality,Calculated 289.3 MOS/KG (273-304); Total Protein 5.6 G/DL (6.4-8.3)
[2020-09-05 06:34] LABS: Calcium 7.2 MG/DL (8.5-10.1); Osmolality,Calculated 287.4 MOS/KG (273-304)
[2020-09-05] MEDS: calcitrioL 0.25 MCG CAPSULE PO SCH (08:59)
[2020-09-05] MEDS: predniSONE 50 MG TABLET PO SCH ×2 (08:59→21:04)
[2020-09-05] MEDS: FOLIC ACID 1 MG TABLET PO SCH (08:59)
[2020-09-05] MEDS: amLODIPine 5 MG TABLET PO SCH (08:59)
[2020-09-05] MEDS: carvediloL 6.25 MG TABLET PO SCH ×2 (08:59→17:02)
[2020-09-05] MEDS: TAMSULOSIN 0.4 MG CAPSULE PO SCH (08:59)
[2020-09-05] MEDS: CLOTRIMAZOLE 10 MG TROCHE PO SCH ×4 (08:59→21:04)
[2020-09-05] MEDS: NYSTATIN POWDER 15 GM BOTTLE TOP SCH ×2 (09:00→21:05)
[2020-09-05] MEDS: PANTOPRAZOLE 40 MG VIAL IV SCH ×2 (09:00→21:04)
[2020-09-05] MEDS: ZINC OXIDE 16% PASTE 57 GM TUBE TOP SCH ×2 (09:00→21:05)
[2020-09-05] MEDS: KETOCONAZOLE 2% CREAM 30 GM TUBE TOP SCH ×2 (09:00→21:05)
[2020-09-05] MEDS: INSULIN LISPRO 100 UNIT/ML SUBCUT SCH ×4 (09:01→21:04)
[2020-09-05] MEDS: ZINC OXIDE PASTE 113 GM TUBE TOP SCH (15:43)
[2020-09-06] MEDS: SODIUM CHLORIDE 0.9% 1,000 ML IV SCH ×3 (04:35→21:08)
[2020-09-06] MEDS: ZINC OXIDE PASTE 113 GM TUBE TOP SCH ×3 (04:35→21:02)
[2020-09-06 06:28] LABS: Basophils % 0.2 % (0.0-0.8); Hematocrit 30.3 VOL% (42.0-52.0); Hemoglobin 9.6 GM/DL (14.0-18.0); Immature Granulocytes % 4.7 %; Immature Granulocytes Absolute 0.31 #; Lymphocytes # 0.5 10*3/uL (1.4-4.0); Lymphocytes % 8.1 % (21.2-54.2); Mean Corpuscular HGB Conc 31.7 GM/DL (32-36); Mean Corpuscular Volume 67.6 FL (87-102); Monocytes % 4.7 % (1.7-12.7); Neutrophils % 82.3 % (38.7-73.9); Red Blood Count 4.48 MC/CUMM (3.8-5.5); Red Cell Distribution Width 26.2 % (9.3-17.3); White Blood Count 6.7 T/CUMM (4-12)
[2020-09-06 06:30] LABS: Platelet Count 84 T/CUMM (130-400)
[2020-09-06 06:48] LABS: Hypochromasia Slight; Microcytosis 2+; Platelet Estimate Decreased
[2020-09-06 07:03] LABS: Albumin 1.7 G/DL (3.4-5.0); Bilirubin,Total 0.6 MG/DL (0.2-1.0); Calcium 7.6 MG/DL (8.5-10.1); Osmolality,Calculated 280.8 MOS/KG (273-304); Total Protein 6.1 G/DL (6.4-8.3)
[2020-09-06] MEDS: TAMSULOSIN 0.4 MG CAPSULE PO SCH (08:52)
[2020-09-06] MEDS: PANTOPRAZOLE 40 MG VIAL IV SCH ×2 (08:52→20:57)
[2020-09-06] MEDS: FOLIC ACID 1 MG TABLET PO SCH (08:52)
[2020-09-06] MEDS: predniSONE 50 MG TABLET PO SCH ×2 (08:52→20:57)
[2020-09-06] MEDS: CLOTRIMAZOLE 10 MG TROCHE PO SCH ×4 (08:52→21:04)
[2020-09-06] MEDS: calcitrioL 0.25 MCG CAPSULE PO SCH (08:52)
[2020-09-06] MEDS: KETOCONAZOLE 2% CREAM 30 GM TUBE TOP SCH ×2 (08:53→21:02)
[2020-09-06] MEDS: amLODIPine 5 MG TABLET PO SCH (08:53)
[2020-09-06] MEDS: ZINC OXIDE 16% PASTE 57 GM TUBE TOP SCH ×2 (08:53→21:01)
[2020-09-06] MEDS: carvediloL 6.25 MG TABLET PO SCH ×2 (08:53→18:30)
[2020-09-06] MEDS: NYSTATIN POWDER 15 GM BOTTLE TOP SCH ×2 (08:54→21:02)
[2020-09-06] MEDS: INSULIN LISPRO 100 UNIT/ML SUBCUT SCH ×4 (10:21→20:57)
[2020-09-06] MEDS: MUPIROCIN 2% OINT 22 GM TUBE TOP SCH ×3 (10:24→21:02)
[2020-09-07] MEDS: SODIUM CHLORIDE 0.9% 1,000 ML IV SCH ×3 (00:27→19:05)
[2020-09-07 05:23] LABS: Basophils % 0.2 % (0.0-0.8); Hematocrit 23.1 VOL% (42.0-52.0); Hemoglobin 7.4 GM/DL (14.0-18.0); Immature Granulocytes % 6.8 %; Immature Granulocytes Absolute 0.38 #; Lymphocytes # 0.4 10*3/uL (1.4-4.0); Lymphocytes % 7.9 % (21.2-54.2); Mean Corpuscular Volume 67.5 FL (87-102); Monocytes % 3.8 % (1.7-12.7); NRBC # 0.02 10*3/uL; Neutrophils % 81.3 % (38.7-73.9); Platelet Count 93 T/CUMM (130-400); Red Blood Count 3.42 MC/CUMM (3.8-5.5); Red Cell Distribution Width 25.8 % (9.3-17.3); White Blood Count 5.6 T/CUMM (4-12)
[2020-09-07 05:44] LABS: Hypochromasia 1+; Lymphocytes 5 % (20-55); Nucleated Red Blood Cells 3 (0-5); Platelet Estimate Decreased; Segmented Neutrophils 93 % (50-85); Total Cells Counted 100
[2020-09-07 05:45] LABS: Microcytosis 1+
[2020-09-07 05:47] LABS: Albumin 1.5 G/DL (3.4-5.0); Bilirubin,Total 1.2 MG/DL (0.2-1.0); Calcium 7.4 MG/DL (8.5-10.1); Osmolality,Calculated 285.5 MOS/KG (273-304)
[2020-09-07] MEDS ORDERED: SODIUM CHLORIDE 0.9% 1,000 ML IV PRN (08:39)
[2020-09-07] MEDS: NYSTATIN POWDER 15 GM BOTTLE TOP SCH ×2 (09:29→20:36)
[2020-09-07] MEDS: MUPIROCIN 2% OINT 22 GM TUBE TOP SCH ×3 (09:29→21:20)
[2020-09-07] MEDS: ZINC OXIDE 16% PASTE 57 GM TUBE TOP SCH ×2 (09:29→20:36)
[2020-09-07] MEDS: carvediloL 6.25 MG TABLET PO SCH ×2 (09:30→16:39)
[2020-09-07] MEDS: FOLIC ACID 1 MG TABLET PO SCH (09:30)
[2020-09-07] MEDS: predniSONE 50 MG TABLET PO SCH ×2 (09:30→20:36)
[2020-09-07] MEDS: calcitrioL 0.25 MCG CAPSULE PO SCH (09:30)
[2020-09-07] MEDS: TAMSULOSIN 0.4 MG CAPSULE PO SCH (09:30)
[2020-09-07] MEDS: INSULIN LISPRO 100 UNIT/ML SUBCUT SCH ×4 (09:31→20:35)
[2020-09-07] MEDS: PANTOPRAZOLE 40 MG VIAL IV SCH ×2 (09:31→20:35)
[2020-09-07] MEDS: ZINC OXIDE PASTE 113 GM TUBE TOP SCH ×2 (09:32→20:36)
[2020-09-07] MEDS: KETOCONAZOLE 2% CREAM 30 GM TUBE TOP SCH ×2 (09:32→20:36)
[2020-09-07] MEDS: CLOTRIMAZOLE 10 MG TROCHE PO SCH ×4 (09:32→20:36)
[2020-09-07] MEDS: amLODIPine 5 MG TABLET PO SCH (09:42)
[2020-09-07 15:29] LABS: Coproporphyrin, Tetra 32 nmol/L (<=110); Interpretation SEE COMMENTS; Uroporphyrin, Octa 4 nmol/L (<=30)
[2020-09-08] MEDS: SODIUM CHLORIDE 0.9% 1,000 ML IV SCH (06:36)
[2020-09-08] MEDS: ZINC OXIDE PASTE 113 GM TUBE TOP SCH ×2 (08:34→20:27)
[2020-09-08] MEDS: KETOCONAZOLE 2% CREAM 30 GM TUBE TOP SCH ×2 (08:34→20:23)
[2020-09-08] MEDS: NYSTATIN POWDER 15 GM BOTTLE TOP SCH ×2 (08:34→20:23)
[2020-09-08] MEDS: ZINC OXIDE 16% PASTE 57 GM TUBE TOP SCH ×2 (08:34→20:27)
[2020-09-08] MEDS: MUPIROCIN 2% OINT 22 GM TUBE TOP SCH ×3 (08:34→20:26)
[2020-09-08] MEDS ORDERED: propofoL 200 MG/20 ML VIAL IV ONE (09:00)
[2020-09-08] MEDS ORDERED: LIDOCAINE 2% 5 ML VIAL ONE (09:00)
[2020-09-08 10:02] LABS: Basophils % 0.3 % (0.0-0.8); Immature Granulocytes % 7.5 %; Immature Granulocytes Absolute 0.45 #; Lymphocytes # 0.6 10*3/uL (1.4-4.0); Lymphocytes % 10.4 % (21.2-54.2); Mean Corpuscular HGB Conc 32.3 GM/DL (32-36); Mean Corpuscular Volume 71.1 FL (87-102); NRBC # 0.03 10*3/uL; Neutrophils % 77.8 % (38.7-73.9)
[2020-09-08 10:06] LABS: Hemoglobin 11.3 GM/DL (14.0-18.0); Platelet Count 94 T/CUMM (130-400); Red Blood Count 4.92 MC/CUMM (3.8-5.5)
[2020-09-08 10:21] LABS: Albumin 1.7 G/DL (3.4-5.0); Bilirubin,Total 0.6 MG/DL (0.2-1.0); Calcium 7.4 MG/DL (8.5-10.1); Total Protein 5.9 G/DL (6.4-8.3)
[2020-09-08 10:22] LABS: Band Neutrophils 1 % (0-10); Hypochromasia 1+; Lymphocytes 17 % (20-55); Microcytosis 1+; Segmented Neutrophils 79 % (50-85); Total Cells Counted 100
[2020-09-08 10:23] LABS: Platelet Estimate Decreased; Polychromasia Slight
[2020-09-08] MEDS: INSULIN LISPRO 100 UNIT/ML SUBCUT SCH ×4 (10:47→20:22)
[2020-09-08] MEDS: FOLIC ACID 1 MG TABLET PO SCH (10:48)
[2020-09-08] MEDS: predniSONE 50 MG TABLET PO SCH ×2 (10:48→20:23)
[2020-09-08] MEDS: amLODIPine 5 MG TABLET PO SCH (10:48)
[2020-09-08] MEDS: PANTOPRAZOLE 40 MG VIAL IV SCH ×2 (10:48→20:22)
[2020-09-08] MEDS: CLOTRIMAZOLE 10 MG TROCHE PO SCH ×4 (10:48→20:23)
[2020-09-08] MEDS: carvediloL 6.25 MG TABLET PO SCH ×2 (10:48→17:33)
[2020-09-08] MEDS: TAMSULOSIN 0.4 MG CAPSULE PO SCH (10:48)
[2020-09-08] MEDS: calcitrioL 0.25 MCG CAPSULE PO SCH (10:48)
[2020-09-08] MEDS ORDERED: POLYETHYLENE GLYCOL POWDER 255 GM BOTTLE PO ONE (18:00)
[2020-09-08] MEDS ORDERED: MAGNESIUM CITRATE 300 ML BOTTLE PO ONE (21:00)
[2020-09-09 06:05] LABS: Basophils % 0.2 % (0.0-0.8); Hematocrit 34.3 VOL% (42.0-52.0); Hemoglobin 11.1 GM/DL (14.0-18.0); Immature Granulocytes % 7.3 %; Immature Granulocytes Absolute 0.41 #; Lymphocytes # 0.6 10*3/uL (1.4-4.0); Mean Corpuscular HGB Conc 32.4 GM/DL (32-36); Mean Corpuscular Volume 72.1 FL (87-102); NRBC # 0.02 10*3/uL; Neutrophils % 80.5 % (38.7-73.9); Platelet Count 98 T/CUMM (130-400); Red Blood Count 4.76 MC/CUMM (3.8-5.5); White Blood Count 5.6 T/CUMM (4-12)
[2020-09-09 06:27] LABS: Band Neutrophils 1 % (0-10); Hypochromasia Slight; Lymphocytes 10 % (20-55); Macrocytosis Slight; Nucleated Red Blood Cells 1 (0-5); Platelet Estimate Decreased; Polychromasia Slight; Segmented Neutrophils 86 % (50-85); Total Cells Counted 100
[2020-09-09] MEDS ORDERED: MAGNESIUM CITRATE 300 ML BOTTLE PO ONE (06:28)
[2020-09-09] MEDS: SODIUM CHLORIDE 0.9% 1,000 ML IV SCH ×3 (06:36→20:06)
[2020-09-09 06:52] LABS: Calcium 7.6 MG/DL (8.5-10.1); Osmolality,Calculated 279.8 MOS/KG (273-304)
[2020-09-09] MEDS ORDERED: LIDOCAINE 2% 5 ML VIAL ONE (09:00)
[2020-09-09] MEDS ORDERED: propofoL 200 MG/20 ML VIAL IV ONE (09:00)
[2020-09-09] MEDS ORDERED: ONDANSETRON 4 MG/2 ML VIAL ONE (09:00)
[2020-09-09] MEDS: INSULIN LISPRO 100 UNIT/ML SUBCUT SCH ×4 (11:15→21:29)
[2020-09-09] MEDS: carvediloL 6.25 MG TABLET PO SCH ×2 (11:43→17:17)
[2020-09-09] MEDS: predniSONE 50 MG TABLET PO SCH ×2 (11:44→21:06)
[2020-09-09] MEDS: CLOTRIMAZOLE 10 MG TROCHE PO SCH ×4 (11:44→21:06)
[2020-09-09] MEDS: MUPIROCIN 2% OINT 22 GM TUBE TOP SCH ×3 (15:08→21:07)
[2020-09-09] MEDS: ZINC OXIDE 16% PASTE 57 GM TUBE TOP SCH ×2 (15:08→21:07)
[2020-09-09] MEDS: KETOCONAZOLE 2% CREAM 30 GM TUBE TOP SCH ×2 (15:08→21:06)
[2020-09-09] MEDS: ZINC OXIDE PASTE 113 GM TUBE TOP SCH ×2 (15:08→21:06)
[2020-09-09] MEDS: PANTOPRAZOLE 40 MG VIAL IV SCH ×2 (15:08→21:07)
[2020-09-09] MEDS: NYSTATIN POWDER 15 GM BOTTLE TOP SCH ×2 (15:08→21:06)
[2020-09-09] MEDS: TAMSULOSIN 0.4 MG CAPSULE PO SCH (15:11)
[2020-09-09] MEDS: FOLIC ACID 1 MG TABLET PO SCH (15:11)
[2020-09-09] MEDS: amLODIPine 5 MG TABLET PO SCH (15:11)
[2020-09-09] MEDS: calcitrioL 0.25 MCG CAPSULE PO SCH (15:15)
[2020-09-10 06:46] LABS: Basophils % 0.2 % (0.0-0.8); Hematocrit 30.1 VOL% (42.0-52.0); Hemoglobin 9.7 GM/DL (14.0-18.0); Immature Granulocytes % 1.5 %; Lymphocytes # 0.5 10*3/uL (1.4-4.0); Lymphocytes % 3.6 % (21.2-54.2); Mean Corpuscular HGB Conc 32.2 GM/DL (32-36); Mean Corpuscular Volume 71.8 FL (87-102); Monocytes % 2.3 % (1.7-12.7); Neutrophils % 92.4 % (38.7-73.9); Platelet Count 96 T/CUMM (130-400); Red Blood Count 4.19 MC/CUMM (3.8-5.5); Red Cell Distribution Width 26.3 % (9.3-17.3); White Blood Count 12.9 T/CUMM (4-12)
[2020-09-10 07:15] LABS: Calcium 7.2 MG/DL (8.5-10.1); Osmolality,Calculated 289.1 MOS/KG (273-304)
[2020-09-10] MEDS: INSULIN LISPRO 100 UNIT/ML SUBCUT SCH ×4 (08:25→20:50)
[2020-09-10] MEDS: CLOTRIMAZOLE 10 MG TROCHE PO SCH ×4 (08:27→20:50)
[2020-09-10] MEDS: amLODIPine 5 MG TABLET PO SCH (08:27)
[2020-09-10] MEDS: TAMSULOSIN 0.4 MG CAPSULE PO SCH (08:27)
[2020-09-10] MEDS: FOLIC ACID 1 MG TABLET PO SCH (08:27)
[2020-09-10] MEDS: carvediloL 6.25 MG TABLET PO SCH ×2 (08:27→16:36)
[2020-09-10] MEDS: predniSONE 50 MG TABLET PO SCH (08:27)
[2020-09-10] MEDS: NYSTATIN POWDER 15 GM BOTTLE TOP SCH ×2 (08:29→20:53)
[2020-09-10] MEDS: KETOCONAZOLE 2% CREAM 30 GM TUBE TOP SCH ×2 (08:29→20:53)
[2020-09-10] MEDS: MUPIROCIN 2% OINT 22 GM TUBE TOP SCH ×3 (08:29→20:54)
[2020-09-10] MEDS: PANTOPRAZOLE 40 MG VIAL IV SCH ×2 (08:30→20:50)
[2020-09-10] MEDS: ZINC OXIDE 16% PASTE 57 GM TUBE TOP SCH ×2 (08:30→20:53)
[2020-09-10] MEDS: ZINC OXIDE PASTE 113 GM TUBE TOP SCH ×2 (08:30→20:53)
[2020-09-10] MEDS: calcitrioL 0.25 MCG CAPSULE PO SCH (08:35)
[2020-09-10 08:36] LABS: Hypochromasia 4+; Lymphocytes 2 % (20-55); Segmented Neutrophils 98 % (50-85); Total Cells Counted 100
[2020-09-10] MEDS: SODIUM CHLORIDE 0.9% 1,000 ML IV SCH ×2 (08:36→12:12)
[2020-09-10 08:37] LABS: Burr Cells Few; Microcytosis 2+; Ovalocytes Few; Platelet Estimate Adequate; Polychromasia Slight; Schistocytes Slight
[2020-09-10 09:43] LABS: Hematocrit 31.3 VOL% (42.0-52.0); Hemoglobin 9.9 GM/DL (14.0-18.0)
[2020-09-10 11:34] LABS: Albumin 1.6 G/DL (3.4-5.0); Bilirubin,Total 0.4 MG/DL (0.2-1.0); Calcium 7.1 MG/DL (8.5-10.1); Osmolality,Calculated 289.1 MOS/KG (273-304); Total Protein 4.8 G/DL (6.4-8.3)
[2020-09-10] MEDS: ACYCLOVIR 5% OINT 15 GM TUBE TOP SCH ×5 (14:32→22:10)
[2020-09-11] MEDS: ACYCLOVIR 5% OINT 15 GM TUBE TOP SCH ×5 (05:40→17:00)
[2020-09-11 06:09] LABS: Basophils % 0.2 % (0.0-0.8); Hematocrit 27.3 VOL% (42.0-52.0); Hemoglobin 8.7 GM/DL (14.0-18.0); Immature Granulocytes % 2.2 %; Immature Granulocytes Absolute 0.14 #; Lymphocytes # 0.8 10*3/uL (1.4-4.0); Lymphocytes % 12.3 % (21.2-54.2); Mean Corpuscular HGB Conc 31.9 GM/DL (32-36); Mean Corpuscular Volume 71.1 FL (87-102); Monocytes % 4.7 % (1.7-12.7); NRBC # 0.02 10*3/uL; Neutrophils % 80.6 % (38.7-73.9); Platelet Count 81 T/CUMM (130-400); Red Blood Count 3.84 MC/CUMM (3.8-5.5); White Blood Count 6.4 T/CUMM (4-12)
[2020-09-11 06:33] LABS: Calcium 7.1 MG/DL (8.5-10.1); Osmolality,Calculated 286.3 MOS/KG (273-304)
[2020-09-11 06:37] LABS: Albumin 1.5 G/DL (3.4-5.0); Bilirubin,Total 0.6 MG/DL (0.2-1.0); Calcium 7.2 MG/DL (8.5-10.1); Osmolality,Calculated 288.1 MOS/KG (273-304); Total Protein 4.8 G/DL (6.4-8.3)
[2020-09-11] MEDS: SODIUM CHLORIDE 0.9% 1,000 ML IV SCH ×3 (07:25→11:27)
[2020-09-11] MEDS: ZINC OXIDE 16% PASTE 57 GM TUBE TOP SCH ×2 (08:37→20:44)
[2020-09-11] MEDS: KETOCONAZOLE 2% CREAM 30 GM TUBE TOP SCH ×2 (08:37→20:43)
[2020-09-11] MEDS: MUPIROCIN 2% OINT 22 GM TUBE TOP SCH ×3 (08:37→20:44)
[2020-09-11] MEDS: INSULIN LISPRO 100 UNIT/ML SUBCUT SCH ×4 (08:38→21:02)
[2020-09-11] MEDS: ZINC OXIDE PASTE 113 GM TUBE TOP SCH (08:38)
[2020-09-11] MEDS: NYSTATIN POWDER 15 GM BOTTLE TOP SCH ×2 (08:38→21:03)
[2020-09-11] MEDS: PANTOPRAZOLE 40 MG VIAL IV SCH (08:39)
[2020-09-11] MEDS: amLODIPine 5 MG TABLET PO SCH (08:39)
[2020-09-11] MEDS: TAMSULOSIN 0.4 MG CAPSULE PO SCH (08:39)
[2020-09-11] MEDS: CLOTRIMAZOLE 10 MG TROCHE PO SCH ×5 (08:39→20:42)
[2020-09-11] MEDS: FOLIC ACID 1 MG TABLET PO SCH (08:39)
[2020-09-11] MEDS: carvediloL 6.25 MG TABLET PO SCH ×2 (08:39→16:41)
[2020-09-11] MEDS: calcitrioL 0.25 MCG CAPSULE PO SCH (08:40)
[2020-09-11] MEDS ORDERED: SODIUM CHLORIDE 0.9% 1,000 ML IV PRN (14:06)
[2020-09-12] MEDS: PANTOPRAZOLE 40 MG VIAL IV SCH ×2 (00:52→08:25)
[2020-09-12] MEDS: ZINC OXIDE PASTE 113 GM TUBE TOP SCH ×2 (00:52→08:30)
[2020-09-12] MEDS: ACYCLOVIR 5% OINT 15 GM TUBE TOP SCH ×4 (00:54→13:52)
[2020-09-12] MEDS: SODIUM CHLORIDE 0.9% 1,000 ML IV SCH ×2 (05:54→12:02)
[2020-09-12 06:58] LABS: Basophils % 0.5 % (0.0-0.8); Hematocrit 35.7 VOL% (42.0-52.0); Immature Granulocytes Absolute 0.23 #; Lymphocytes # 0.6 10*3/uL (1.4-4.0); Lymphocytes % 10.7 % (21.2-54.2); Mean Corpuscular HGB Conc 33.1 GM/DL (32-36); Mean Corpuscular Volume 74.5 FL (87-102); Monocytes % 5.2 % (1.7-12.7); NRBC # 0.02 10*3/uL; Neutrophils % 79.6 % (38.7-73.9); Red Cell Distribution Width 25.2 % (9.3-17.3); White Blood Count 5.8 T/CUMM (4-12)
[2020-09-12 07:20] LABS: Albumin 1.8 G/DL (3.4-5.0); Bilirubin,Total 0.9 MG/DL (0.2-1.0); Calcium 7.4 MG/DL (8.5-10.1); Osmolality,Calculated 284.3 MOS/KG (273-304); Total Protein 5.4 G/DL (6.4-8.3)
[2020-09-12 07:24] LABS: Red Blood Count 4.79 MC/CUMM (3.8-5.5)
[2020-09-12 07:25] LABS: Hemoglobin 11.8 GM/DL (14.0-18.0); Platelet Count 68 T/CUMM (130-400)
[2020-09-12 07:31] LABS: Hypochromasia 1+; Microcytosis Slight; Platelet Estimate Decreased
[2020-09-12] MEDS: INSULIN LISPRO 100 UNIT/ML SUBCUT SCH ×2 (08:19→11:32)
[2020-09-12] MEDS: TAMSULOSIN 0.4 MG CAPSULE PO SCH (08:22)
[2020-09-12] MEDS: FOLIC ACID 1 MG TABLET PO SCH (08:22)
[2020-09-12] MEDS: amLODIPine 5 MG TABLET PO SCH (08:22)
[2020-09-12] MEDS: CLOTRIMAZOLE 10 MG TROCHE PO SCH ×2 (08:23→12:00)
[2020-09-12] MEDS: carvediloL 6.25 MG TABLET PO SCH (08:23)
[2020-09-12] MEDS: MUPIROCIN 2% OINT 22 GM TUBE TOP SCH ×2 (08:30→14:06)
[2020-09-12] MEDS: ZINC OXIDE 16% PASTE 57 GM TUBE TOP SCH (08:30)
[2020-09-12] MEDS: KETOCONAZOLE 2% CREAM 30 GM TUBE TOP SCH (08:31)
[2020-09-12] MEDS: NYSTATIN POWDER 15 GM BOTTLE TOP SCH (08:31)
[2020-09-12] MEDS ORDERED: calcitrioL 0.25 MCG CAPSULE PO ONE (09:30)
[2020-09-12] MEDS: calcitrioL 0.25 MCG CAPSULE PO SCH (10:03)
[2020-09-12 11:41] VITALS: BP 177/73
[2020-09-12] MEDS ORDERED: amLODIPine 10 MG TABLET PO SCH (12:17)
[2020-09-12] MEDS ORDERED: ACETAMINOPHEN 325 MG/10.15 ML UDCUP PO PRN (14:04)
[2020-09-12] MEDS: ACETAMINOPHEN 325 MG/10.15 ML UDCUP PO PRN (14:11)
[2020-09-12 16:01] LABS: Coproporphyrin, Tetra 38 nmol/L (<=110); Interpretation SEE COMMENTS; Uroporphyrin, Octa 8 nmol/L (<=30)
[2020-09-13] MEDS ORDERED: PANTOPRAZOLE 40 MG TABLET PO SCH (09:00)
== END 2020-09-12 14:55 | DRG 595 ==
LOC: EDUNIT# → EDBD → N.ED 15:01 → SUPCPDRO 18:10 → SUATTDRO 18:10 → N.EDINP 18:10 → N.4E 21:09
PROVIDERS: ADMIT Family Medicine; ATTEND Hospitalist